=== PATIENT | female | born 1980 | race African-American/Black ===

== ENCOUNTER 2017-09-29 01:22 | Emergency (ER) | payer OTHER ==
[~2017-09-29] VITALS: Ht 165.1 cm; Wt 95.3 kg
--- NOTE | ~2017-09-29 | EKG ---
[place] [address] [facility] [place] [employer] [address] ELECTROCARDIOGRAM REPORT Name: JANE BACH Room #: DEP [place]#: [id number] Admission: 09/29/17 Attend Phys: Discharge: 09/29/17 Date of : 82 Report #: [id number] THIS REPORT FOR: //name// [facility] ED Test Date: 2017-09-29 Test Time: 02:56:09 Pat Name: JANE BACH Department: Room: Gender: F [employer]: arian : 1980 Requested By: Caron Broderick Order Number: [id number] MD: Dillon Carlton Measurements Intervals [place] Rate: 59 P: 37 MO: 159 QRS: 14 QRSD: 81 T: 19 QT: 426 QTc: 422 Interpretive Statements Sinus bradycardia Otherwise normal tracing No previous ECG available for comparison Electronically Signed On 09-29-2017 10:23:54 CDT by Dillon Carlton [email or web address] <ELECTRONICALLY SIGNED> By: Dillon Carlton MD, [facility] 09/29/17 1023 0256 0256 Dillon Carlton MD, FACC /EPI
[~2017-09-29 01:22] MED LIST: ALPRAZOLAM 0.50.5 MG PO; KLONIPIN; XANAX 0.5 MG0.5 M1 PO; [UNRECOGNIZED DRUG - REMARK]
[2017-09-29] MEDS ORDERED: PRILOSEC 10MG C10 MG PO (01:34)
[2017-09-29] MEDS ORDERED: HYDROXYZINE HCL25 M1 PO (01:34)
[2017-09-29 02:56] LABS: ABSOLUTE NEUTROPHILS 3.6 thou/uL (1.4-8.2); BASOPHILS 0.5 % (0.0-2.0); EOSINOPHILS 0.6 % (0.0-3.0); HEMATOCRIT 34.4 % (37.0-47.0); HEMOGLOBIN 11.4 gm/dL (12.0-15.0); LYMPHOCYTES 30.8 % (24.0-44.0); MCH 27.8 pg (26.0-34.0); MCV 84.1 fL (80.0-100.0); MONOCYTES 6.1 % (1.0-8.0); PLATELET COUNT 277 thou/uL (150-400); RBC 4.09 mil/uL (4.20-5.00); RDW 15.2 % (10.5-14.5); WBC 5.8 thou/uL (4.0-11.0)
[2017-09-29 03:04] LABS: ANION GAP 4 mmol/L (7-16); BUN 9 mg/dL (7-18); CALCIUM 8.7 mg/dL (8.5-10.1); CHLORIDE 106 mmol/L (98-107); CO2 26 mmol/L (21-32); GLUCOSE 91 mg/dL (74-106); POTASSIUM 3.9 mmol/L (3.5-5.1); SODIUM 136 mmol/L (136-145)
[2017-09-29 03:13] LABS: TROPONIN-I < 0.04 ng/mL (<0.06)
[2017-09-29] MEDS ORDERED: ATIVAN0.5 MG PO (04:02)
[2017-09-29 04:08] VITALS: BP 108/69
== END 2017-09-29 04:17 | disposition home or self-care (01) ==
LOC: ER 01:22
PROVIDERS: Emergency Medicine
DX: R07.9 Chest pain, unspecified (principal); R00.2 Palpitations; R06.00 Dyspnea, unspecified